=== PATIENT | female | born 1980 | race Caucasian/White ===

== ENCOUNTER 2022-09-12 15:12 | Observation (INO) ==
[2022-09-12] MEDS ORDERED: Lactated Ringers 1000 ml BAG 1,000 ML IV ONE ×2 (15:43→18:15)
[2022-09-12] MEDS ORDERED: Morphine 4 MG/ML VIAL (1 ml) IV ONE ×2 (15:43→19:00)
[2022-09-12 16:19] LABS: ABS Eosinophils 0.3 10^3/ul (0-0.6); ABS Lymphocytes 0.8 10^3/ul (1.0-4.8); ABS Monocytes 0.6 10^3/ul (0-0.8); ABS Neutrophils 8.6 10^3/ul (1.5-7.7); Eosinophil % 2.5 %; Hematocrit 38 % (35-47); Hemoglobin 12.7 g/dL (12.0-16.0); Lymphocyte % 7.7 %; Mean Corpuscular HGB Conc 34 g/dL (31-36); Mean Corpuscular Hemoglobin 31 pg (27-31); Mean Corpuscular Volume 91 fL (80-97); Mean Platelet Volume 8.6 fL (7.4-10.4); Platelet Count 281 10^3/uL (150-450); Red Blood Count 4.17 10^6 /uL (3.70-4.87); Red Cell Distribution Width 14 % (10-15); White Blood Count 10.3 10^3/uL (3.5-10.8)
[2022-09-12 16:20] LABS: High Sens Troponin Baseline < 3 pg/mL (<15)
[2022-09-12 16:21] LABS: INR 1.04 (0.88-1.18)
[2022-09-12 16:24] LABS: ALT 60 U/L (7-52); AST 49 U/L (13-39); Albumin 4.8 g/dL (3.2-5.2); Albumin/Globulin Ratio 1.9 (1-3); Alkaline Phosphatase 63 U/L (35-149); Anion Gap 10 mmol/L (2-11); Blood Urea Nitrogen 12 mg/dL (6-24); C Reactive Protein 9.01 mg/L (<8.01); CO2 Carbon Dioxide 26 mmol/L (22-32); Calcium 9.4 mg/dL (8.6-10.3); Chloride 102 mmol/L (101-111); Globulin 2.5 g/dL (2-4); Glucose 115 mg/dL (70-100); Potassium 4.3 mmol/L (3.5-5.0); Sodium 138 mmol/L (135-145); Total Protein 7.3 g/dL (6.4-8.9); eGFR CKD-EPI 114.7 (>60)
[2022-09-12 18:17] LABS: Urine Appearance Clear; Urine Bilirubin Negative (Negative); Urine Blood Trace (Lysed) (Negative); Urine Color Straw; Urine Glucose Negative (Negative); Urine Ketones Negative (Negative); Urine Nitrite Negative (Negative); Urine Protein Negative (Negative); Urine Specific Gravity 1.025 (1.005-1.030); Urine Urobilinogen 0.2 (Negative) (Negative)
[2022-09-12 18:36] LABS: High Sensitivity Troponin 1 Hr 3 pg/mL (<15)
[2022-09-12 18:46] LABS: Urine Bacteria Absent (Absent); Urine Red Blood Cell 1+(3-5/hpf) (Absent); Urine Squamous Epithelial Cell Present (Absent); Urine White Blood Cell Trace(0-5/hpf) (Absent)
[2022-09-12] MEDS ORDERED: Albuterol HFA INHALER 8 gm MDI INH PRN (21:49)
[2022-09-12] MEDS ORDERED: Remdesivir 100 mg Vial 200 MG in NS 0.9% 250 ml 210 ML IV ONE (22:30)
[2022-09-12] MEDS ORDERED: Mometasone/Formoter 100/5 MDI INH PRN (22:33)
[2022-09-12] MEDS: metroNIDAZOLE IV 500 MG/100ML 500 MG/100 ML BAG IVPB SCH (23:22)
[2022-09-12] MEDS: Cefepime 2 GM in Dextrose 2 GM/50 ML BAG IV SCH (23:22)
[2022-09-12] MEDS: Heparin 5000 UNITS/ML 1 mL VIAL SUBCUT SCH (23:23)
[2022-09-13] MEDS: HYDROcodone/ACETAMIN 5/325 mg TAB PO PRN ×3 (00:05→14:41)
[2022-09-13] MEDS ORDERED: Venlafaxine XR 75 mg PO SCH (09:00)
[2022-09-13 09:18] LABS: INR 1.12 (0.88-1.18)
[2022-09-13] MEDS ORDERED: Polyethylene Glycol 3350 17 GM PACKET PO PRN (09:42)
[2022-09-13 09:49] LABS: Albumin 4.1 g/dL (3.2-5.2); Albumin/Globulin Ratio 1.9 (1-3); Calcium 8.6 mg/dL (8.6-10.3); Globulin 2.2 g/dL (2-4); Magnesium 1.9 mg/dL (1.9-2.7); Potassium 3.8 mmol/L (3.5-5.0); Total Bilirubin 0.6 mg/dL (0.2-1.0); Total Protein 6.3 g/dL (6.4-8.9); eGFR CKD-EPI 120.8 (>60)
[2022-09-13] MEDS: metroNIDAZOLE IV 500 MG/100ML 500 MG/100 ML BAG IVPB SCH (10:29)
[2022-09-13] MEDS: Cefepime 2 GM in Dextrose 2 GM/50 ML BAG IV SCH (10:29)
[2022-09-13] MEDS: Heparin 5000 UNITS/ML 1 mL VIAL SUBCUT SCH (10:29)
[2022-09-13] MEDS ORDERED: metroNIDAZOLE IV 500 MG/100ML 500 MG/100 ML BAG IVPB SCH (10:30)
[2022-09-13] MEDS ORDERED: Heparin 5000 UNITS/ML 1 mL VIAL SUBCUT SCH (11:00)
[2022-09-13 11:38] VITALS: BP 119/82
[2022-09-13] MEDS ORDERED: Remdesivir 100 mg Vial 100 MG in NS 0.9% 250 ml 230 ML IV SCH (21:00)
[2022-09-13] MEDS ORDERED: Multivitamins/Minerals TAB PO SCH (21:00)
== END 2022-09-13 17:10 | disposition home or self-care (01) ==
LOC: EDHOLD 15:12 → ED 15:12 → SUATTDRO 21:47 → EDHOLD 09-13 07:38 → MED 09-13 08:50
PROVIDERS: ADMIT Internal Medicine; ATTEND Internal Medicine